=== PATIENT | male | born 1950 ===

== ENCOUNTER 2016-09-15 15:38 | Emergency (ER) | payer OTHER, BC ==
[2016-09-15 15:42] VITALS: BP 155/91; PULSE 77; RESP 20; TEMP 97.9; O2SAT 99
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
--- NOTE | 2016-09-16 09:05 | CT ---
PROCEDURE: CT Cervical Spine without contrast HISTORY: Trauma Relevant surgical history: Prior anterior cervical discectomy fusion COMPARISON: None available. TECHNIQUE: Axial computed tomography images were obtained of the cervical spine without the use of intravenous contrast. Coronal and sagittal reformatted images were created and reviewed. Radiation dose: Total exam DLP = 509.12 mGy-cm. This CT exam was performed using one or more of the following dose reduction techniques: Automated exposure control, adjustment of the mA and/or kV according to patient size, and/or use of iterative reconstruction technique. FINDINGS: VERTEBRAE: Evidence of anterior cervical fusion C4-C7. No evidence of hardware failure or migration. Endplate and fenestrated screws in satisfactory position in. DISCS/SPINAL CANAL/NEURAL FORAMINA: Vaginal osteophyte formation at multiple levels. Suspected postoperative findings related to discectomy infusion. PARASPINAL SOFT TISSUES: Unremarkable. OTHER FINDINGS: None. IMPRESSION: No acute findings related to/accounting for the clinical presentation. Extensive postoperative changes. Concordant results (preliminary interpretation) provided by [facility]. Procedure Completed: 17:21 Preliminary ([facility]) Report: Dictated and Authenticated: 18:38 Final Interpretation: 09:03. September 16, 2016.
== END 2016-09-15 19:01 | disposition home or self-care (01) ==
LOC: H.ER 15:38
DX: M54.2 Cervicalgia (principal); I10 Essential (primary) hypertension; E11.9 Type 2 diabetes mellitus without complications